=== PATIENT | female | born 1950 | race Caucasian/White ===

== ENCOUNTER 2016-09-28 08:45 | Emergency (ER) | payer OTHER ==
[~2016-09-28 08:45] MED LIST: ALBUTEROL20 ml INH; ASPIRIN81 M2 PO; BUMEX2 MG PO; CARDIZEM30 M2 PO; HYDRALAZINE HCL25 MG PO; ISMO20 M2 PO; LEVAQUIN750 MG PO; PREDNISONE10 MG/DOSE PO; PRILOSEC20 M1 PO; ROBITUSSIN COU118 M6 PO; SPIRIVA18 MCG INH; SYMBICORT INH; WELLBUTRIN100 MG PO
[2016-09-28] MEDS ORDERED: QVAR8.7 G1 INH (08:57)
[2016-09-28] MEDS ORDERED: LANOXIN125 MCG PO (08:57)
[2016-09-28] MEDS ORDERED: DILTIAZEM ER90 MG PO (08:57)
[2016-09-28] MEDS ORDERED: PRILOSEC PO (08:57)
[2016-09-28] MEDS ORDERED: DOCUSATE SODIU100 MG PO (08:57)
[2016-09-28] MEDS ORDERED: LEVSIN0.125 M2 (08:58)
[2016-09-28] MEDS ORDERED: K-DUR20 ME1 PO (08:59)
[2016-09-28] MEDS ORDERED: BUMETANIDE1 MG PO (08:59)
== END 2016-09-28 09:49 | disposition home or self-care (01) ==
LOC: SED 08:45
DX: F03.90 Unspecified dementia, unspecified severity, without behavioral disturbance, psychotic disturbance, mood disturbance, and anxiety (principal); E11.9 Type 2 diabetes mellitus without complications; I11.9 Hypertensive heart disease without heart failure; Z79.899 Other long term (current) drug therapy
CPT/HCPCS: 99284